=== PATIENT | female | born 1975 | race Caucasian/White ===

== ENCOUNTER 2017-02-04 15:02 | Emergency (ER) | payer MEDICARE, OTHER ==
[2017-02-04 13:19] LABS: BASOPHILS 0.4 %; BASOPHILS ABSOLUTE 0.03 10/3/uL (0.0-0.16); EOSINOPHILS 4.6 %; EOSINOPHILS ABSOLUTE 0.31 10/3/uL (0.0-0.53); ER CBC TAT 0 Hrs 07 Mins; HEMATOCRIT 38.3 % (36.0-48.0); HEMOGLOBIN 12.8 g/dL (12.0-16.0); IMMATURE GRANULOCYTES 0.3 %; IMMATURE GRANULOCYTES ABSOLUTE 0.02 10/3/uL (0.0-0.11); LYMPHOCYTES 35.7 %; LYMPHOCYTES ABSOLUTE 2.41 10/3/uL (0.67-4.30); MEAN CORPUS HGB CONC 33.4 g/dL (32.0-36.0); MEAN CORPUSCULAR HEMOGLOB 29.6 pg (26.0-34.0); MEAN CORPUSCULAR VOLUME 88.5 fL (80-100); MEAN PLATELET VOLUME 10.8 fL (9.2-13.0); MONOCYTES 7.4 %; NEUTROPHILS 51.6 %; NEUTROPHILS ABSOLUTE 3.48 10/3/uL (2.02-8.40); PLATELET COUNT 331 10/3/uL (150-400); RBC DISTRIBUTION WIDTH 14.5 % (12.0-16.0); RED CELL COUNT 4.33 10/6/uL (4.0-5.6); WHITE BLOOD CELLS 6.8 10/3/uL (4.5-10.5)
[2017-02-04 13:20] LABS: MANUAL DIFF NO %
[2017-02-04 13:27] LABS: PARTIAL THROMBO TIME 26.9 SEC (22.5-37.2); PROTIME (NOT ORD) 13.2 SEC (12.0-14.5)
[2017-02-04 13:37] LABS: CHEST PAIN PROFILE TAT 0 Hrs 25 Mins; CHLORIDE, SERUM 105 MMOL/L (96-112); CO2 (CARBON DIOXIDE) 26 MMOL/L (24-34); CREATININE 0.61 MG/DL (0.55-1.02); GFR AFRICAN AMERICAN 132 ML/MIN (>=60); GFR NON AFRICAN AMERICAN 114 ML/MIN (>=60); GLUCOSE, SERUM 87 MG/DL (60-99); POTASSIUM, SERUM 3.6 MMOL/L (3.5-5.3); SODIUM, SERUM 136 MMOL/L (135-148); TROPONIN I <0.02 NG/ML (<0.05)
[2017-02-04 13:38] LABS: BUN (BLOOD UREA NITROGEN) 15 MG/DL (6-23)
[~2017-02-04 15:02] MED LIST: ACET500CAP PO; AVONEX; BACDS PO; BEN25 PO; CIP5 PO; COPAXONE SC; EFFEXXR75 PO; FLEX PO; LORT7 PO; LORTAB 5 PO; MELA3 PO; NEUR100 PO; NEUR300 PO; NORCO1 TA2 PO; REBI1 SC; TYLENOL ARTH650 MG PO; VICODINTAB PO; ZANTAC 75 PO; [UNRECOGNIZED DRUG - CODE] IV
== END 2017-02-04 19:45 | disposition home or self-care (01) ==
LOC: ER 15:02
PROVIDERS: Emergency Medicine
DX: R42 Dizziness and giddiness (principal); F17.200 Nicotine dependence, unspecified, uncomplicated; G35 Multiple sclerosis; Z98.51 Tubal ligation status; Z88.1 Allergy status to other antibiotic agents; Z88.0 Allergy status to penicillin; Z88.5 Allergy status to narcotic agent; Z91.048 Other nonmedicinal substance allergy status; Z79.899 Other long term (current) drug therapy
CPT/HCPCS: 70551; 71020; 80048; 83735; 84484; 85025; 85610; 85730; 93005; 99284; A9270-GY